=== PATIENT | male | born 1960 | race Caucasian/White ===

== ENCOUNTER 2024-07-31 16:14 | Emergency (ER) | payer MEDICARE, OTHER, SELFPAY | END 2024-07-31 17:38 | disposition home or self-care (01) | LOC: MADERS 16:14 | DX: S01.81XA Laceration without foreign body of other part of head, initial encounter (principal); I10 Essential (primary) hypertension; Z23 Encounter for immunization; W22.8XXA Striking against or struck by other objects, initial encounter | CPT/HCPCS: 12013; 90471 ==